=== PATIENT | male | born 1970 | race Caucasian/White ===

== ENCOUNTER → 2016-10-29 | Outpatient (CLI) | payer MEDICAID ==
[~2016-10-29] MED LIST: CLINDAMYCIN HC300 MG PO; LOVENOX SC; NOMEDS XX; NORCO 325 MG-51 TAB PO; PRILOSEC20 M1 PO; TIZANIDINE HCL 44 MG PO; TRAMADOL 50MG T50 M1 PO; WARFARIN SOD5 M1 PO
[2016-10-29 07:37] LABS: LYMPH # 2.1 K/mm3 (0.7-4.5); LYMPH % 30.6 % (10-50)
[2016-10-29 07:38] LABS: BUN 7 mg/dL (7-18)
[2016-10-29 07:44] LABS: HEMOGLOBIN 13.2 g/dL (14.1-18.0)
[2016-10-29 07:47] LABS: GFR (ESTIMATED) 91 ML/MIN (>60)
--- NOTE | 2016-10-29 08:50 | CARDIOVASCULAR REPORT ---
"Venous Exam Indications: 729.5 Pain in limb. IMPRESSIONS 1. There is no evidence of significant Reflux. 2. No evidence of deep or superficial vein thrombosis involving the right lower extremity 3. No evidence of deep or superficial vein thrombosis involving the left lower extremity History: PMH: History of SVT Left lower ext Complete lower extremity venous duplex evaluation. Doppler flow study including spectral analysis, color and meadows scale imaging. Tables: Venous flow and imaging: + + + + |Location |Overall |Flow properties | + + + + |Right common femoral |Patent |Normal phasicity; | | | |spontaneous; normal | | | |augmentation; | | | |compressible | + + + + |Right saphenofemoral |Patent |Compressible | |junction | | | + + + + |Right profunda femoral |Patent |Compressible | + + + + |Right femoral |Patent |Normal phasicity; | | | |spontaneous; normal | | | |augmentation; | | | |compressible; no reflux | + + + + |Right greater saphenous |Patent |Normal phasicity; | | | |spontaneous; normal | | | |augmentation; | | | |compressible | + + + + |Right popliteal |Patent |Normal phasicity; | | | |spontaneous; normal | | | |augmentation; | | | |compressible | + + + + |Right posterior tibial |Patent |Compressible | + + + + |Right peroneal |Patent |Compressible | + + + + |Right gastrocnemius |Patent |Compressible | + + + + |Right soleal |Patent |Compressible | + + + + |Left common femoral |Patent |Normal phasicity; | | | |spontaneous; normal | | | |augmentation; | | | |compressible | + + + + |Left saphenofemoral |Patent |Compressible | |junction | | | + + + + |Left profunda femoral |Patent |Compressible | + + + + |Left femoral |Patent |Normal phasicity; | | | |spontaneous; normal | | | |augmentation; | | | |compressible | + + + + |Left greater saphenous |Partially occluded|Diminished phasicity; | | | |spontaneous; diminished | | | |augmentation; partially | | | |compressible | + + + + |Left popliteal |Patent |Normal phasicity; | | | |spontaneous; normal | | | |augmentation; | | | |compressible | + + + + |Left posterior tibial |Patent |Compressible | + + + + |Left peroneal |Patent |Compressible | + + + + |Left gastrocnemius |Patent |Compressible | + + + + |Left soleal |Patent |Compressible | + + + + (Report amended ) Electronically signed by: Zackery Heck [id number]"
--- NOTE | 2016-10-31 08:52 | RADIOLOGY REPORT PS360 ---
CT ABD PELVIS W/ CONTRAST ORDERING PHYSICIAN : Santino Jasso MD PATIENT AGE: 45 years GENDER: Male INDICATION: F/U ANAL CANCER 45-year-old TECHNIQUE: Helical CT scanning performed the abdomen and pelvis following 75 cc Isovue-370 as well as oral contrast. Sagittal & coronal reconstruction CT workstation COMPARISON: CT abdomen and pelvis 09/21/2015 FINDINGS Lung bases clear heart normal size. Abdomen. Liver. Unremarkable. No focal lesions no interval change. Gallbladder no gallstones Question mild wall thickening at the fundus of gallbladder sagittal view versus mild motion artifact. Consider gallbladder ultrasound particularly if right quadrant symptoms.. Common duct normal. Pancreas unremarkable. Unchanged Spleen unremarkable. Kidneys. Satisfactory. No calculi nor obstruction Ureters appear unchanged. Slightly generous in size just before crossing iliac vessels but this is similar to previous study. Urinary bladder Generous distended urinary bladder currently. Warrants correlation. Modest size prostate No significant retroperitoneal nor mesenteric adenopathy nor pelvic adenopathy. A Few small stable scattered left periaortic lymph nodes. Does not appear to be of significance largest measuring 12 mm size x 6 mm contain central fat. & stable. GI tract.: Stomach satisfactory. Small bowel. Upper normal wall thickness and caliber of a few loops of proximal small bowel but overall stable and satisfactory. Terminal ileum and appendix appear normal. Large bowel: Surgical resection rectosigmoid & majority left colon. Colostomy at the LLQ. Colostomy appears intact satisfactory. Moderate/generous stool is seen throughout remaining colon. Osseous structures. No lesions evident IMPRESSION.: 1. Stable CT abdomen pelvis with no evidence of metastatic disease. 2.. Upper normal wall thickness at the fundus of gallbladder. Consider gallbladder ultrasound particularly if symptoms in this region. 3. Left lower quadrant colostomy .. Rectum, sigmoid and majority left colon have been surgically removed
--- NOTE | 2016-10-31 09:04 | RADIOLOGY REPORT PS360 ---
CT CHEST W/ CONTRAST ORDERING PHYSICIAN : Santino Jasso MD PATIENT AGE: 45 years GENDER: Male INDICATION: F/U ANAL [id number] TECHNIQUE: Helical CT scanning performed abdomen and pelvis following 75 cc Isovue-370 as well as oral contrast. Sagittal and coronal reconstruction CT workstation COMPARISON: Previous CT chest 10/22/2014 . FINDINGS . Mildly thickened azygos fissure again noted. Normal variant. Minimal renal this calcification No mediastinal or hilar adenopathy is evident.. There is a 3.6 mm nodule there is a noncalcified 3 mm nodule RLL-on axial slice 42 sagittal 34 coronal 55. I believe it is adequate stable since 03/22/2015 and 09/21/2015 no significant change. Otherwise note benign stable calcified granuloma 4 mm the periphery of the right upper lobe-. Axial image 37. Not of concern Remaining lung soriano clear with no active disease nor suspicious appearing nodule or new nodule. . No pleural lesion or pleural effusion. No pulmonary infiltrate No bony lesions or significant osseous findings. Ribs and spine unremarkable. Mediastinum. Great vessels appear satisfactory. No significant mediastinal adenopathy. Heart normal size. Scant pericardial thickening or fluid anteriorly. Upper abdomen slight fatty changes throughout liver. Otherwise see T CT abdomen report from today IMPRESSION: 1. Stable CT appearance of the chest. No new nodules evident. 2. Old granulomatous disease. 3. Stable 3.6 mm noncalcified nodule in the right lower lobe IMPRESSION:
== END ==
LOC: RAD 10-23 09:00 → RT 07:12 → LAB 07:12 → RT 08:00
PROVIDERS: Internal Medicine
DX: C21.0 Malignant neoplasm of anus, unspecified (principal)
CPT/HCPCS: Q9967